=== PATIENT | male | born 2000 | race African-American/Black ===

== ENCOUNTER 2023-04-17 08:43 | Outpatient (OUT) | payer BC, OTHER, SELFPAY ==
--- NOTE | 2023-04-17 | XR_ITS ---
The [address] [address] Patient Name: YRIS MOLINA MRN: [id number] date: 2000 Sex: M Assigned Patient Location: RAD Current Patient Location: RAD Accession/Order Number: [id number] Exam Date: 04/17/2023 08:46 Report Date: 04/17/2023 10:11 At the request of: REBECCA COBOS Procedure: XR ankle LT min 3V PROCEDURE: XR ankle LT min 3V COMPARISON: None. HISTORY: LEFT ACHILLES PAIN FINDINGS: BONES:No acute fracture or dislocation. Bone fragment along the inferior medial malleolus, remote fractures favored. SOFT TISSUES:Suspected thickening of the Achilles tendon EFFUSION:None visible. OTHER: Negative. XR/XR ankle LT min 3V IMPRESSION: Suspected Achilles tendon thickening. Consider MRI for further evaluation if clinically indicated Electronically authenticated by: JERRI GARCIA Date: 04/17/2023 10:11
== END 2023-04-17 08:44 | disposition home or self-care (01) ==
PROVIDERS: Visit Provider Orthopaedic Surgery
DX: M25.572 Pain in left ankle and joints of left foot (principal)
CPT/HCPCS: 73610